=== PATIENT | male | born 1975 | race Caucasian/White ===

== ENCOUNTER 2020-11-30 09:30 | Emergency (ER) | payer OTHER, SELFPAY ==
[2020-11-30 09:41] VITALS: BP 134/89; PULSE 79; RESP 16; TEMP 36.1; O2SAT 100
--- NOTE | 2020-11-30 10:15 | ED.BACK ---
HPI - Back Pain/Injury General Chief Complaint: Back Pain/Injury Stated Complaint: Lower Back Pain Time Seen by Provider: 11/30/20 10:15 Source: patient Mode of arrival: ambulatory Limitations: no limitations History of Present Illness HPI Narrative: Ivan Olivares is a 45 yo male with a PMH of HTN, who comes to [facility] with lower back pain and pain radiating down right leg after working this weekend and putting down chong at home. Patient has had this type of sciatic pain in the past and treated by his primary care physician with anti-inflammatories and steroids. Patient is a mail sorting supervisor Related Data Home Medications Medication Instructions Recorded Confirmed lisinopril 11/30/20 tadalafil mg 11/30/20 Allergies Allergy/AdvReac Type Severity Reaction Status Date / Time No Known Allergies Allergy Unverified 01/19/12 11:08 Review of Systems Review of Systems: CONSTITUTIONAL: Denies fever, chills, sweats. EYES: Denies visual changes, redness, discharge. ENT: Denies rhinorrhea, congestion, sore throat, otalgia. CARDIOVASCULAR: Denies chest pain, palpitations, edema. RESPIRATORY: Denies dyspnea, wheezing, cough GASTROINTESTINAL: Denies abdominal pain, nausea, vomiting, diarrhea. GENITOURINARY: Denies dysuria, hematuria, abnormal discharge SKIN: Denies rash or itching. NEUROLOGIC: Denies numbness, or focal weakness. PSYCHIATRIC: Denies anxiety or depression. Low back pain right leg pain PMFSH Past Medical History Medical History Erectile dysfunction Hypertension Family History Family History (Updated 11/30/20 @ 10:27 by Pricila Reddy CNP) Other Hypertension Social History Social History (Updated 11/30/20 @ 10:28 by Pricila Reddy CNP) Smoking status: Never smoker Alcohol intake: current Comments At time of signature, I agree with nursing past medical, surgical, social and family history. There is no relevant family history pertinent to the presenting complaint. Exam Narrative: GENERAL: This is a well-nourished, well-developed patient, in mild distress. HEAD: normocephalic, atraumatic. EYES: Sclera clear/white. Vision is grossly intact. EARS: External ears normal, . Hearing grossly intact. NOSE: External nose normal without nasal discharge, nares without redness, no rhinorrhea. THROAT: Mucous membranes moist, NECK: Neck supple, non-tender CARDIOVASCULAR: Regular rate and rhythm without murmurs, gallops, or rubs. RESPIRATORY: Clear to auscultation. Breath sounds equal bilaterally. No wheezes, rales, or rhonchi. GASTROINTESTINAL: Abdomen soft, non-tender, SKIN: warm, intact with no suspicious lesions or rash, good texture and turgor. NEURO: awake, alert, and oriented to person, place and time. There were no obvious focal neurologic abnormalities. Steady gait EXTREMITIES: Normal range of motion. BACK:tender without deformity, patient has no loss of bowel or bladder control is unable to really move forward feels tight no lower back pain with movement of the leg forward Course Course Emergency Course: Patient comes after doing for over the weekend with pain in lower back radiating down right leg Given prednisone 60 mg here Started on Medrol Dosepak and baclofen 10 mg, use ice, Tylenol, limit the amount ibuprofen or Naprosyn that she is because of his high blood pressure Vital Signs Vital signs: Vital Signs Temperature 96.9 F L 11/30/20 09:41 Pulse Rate 79 11/30/20 09:41 Respiratory Rate 16 11/30/20 09:41 Blood Pressure 134/89 11/30/20 09:41 Pulse Oximetry 100 11/30/20 09:41 Temperature 96.9 F L 11/30/20 09:41 Pulse Rate 79 11/30/20 09:41 Respiratory Rate 16 11/30/20 09:41 Blood Pressure 134/89 11/30/20 09:41 Pulse Oximetry 100 11/30/20 09:41 MDM - Back Pain/Injury Differential Diagnosis Differential diagnosis: Likely lumbar radiculopathy, sciatica and other Critical Care Time Critica
[2020-11-30] MEDS: predniSONE 20 MG TABLET 60 MG PO (10:38)
== END 2020-11-30 10:42 | disposition home or self-care (01) ==
PROVIDERS: Emergency Provider Nurse Practitioner; PCP Nurse Practitioner Family
DX: M54.31 Sciatica, right side (principal); I10 Essential (primary) hypertension
CPT/HCPCS: 99213; G0463; J7512